=== PATIENT | male | born 1955 | race Caucasian/White ===

== ENCOUNTER → 2021-01-31 | Outpatient (CLI) | payer OTHER, BC ==
[~2021-01-31] MED LIST: ACTOS15 MG; BYETTA PEN 11 PENINJ; BYETTA PEN 51 PENIN1; CRESTOR40 MG; CYMBALTA; JANUMET 50-5001 EACH; LIPITOR; [UNRECOGNIZED DRUG - OTHER]
== END ==
LOC: SJCVCIMAG 08:33
PROVIDERS: ATTEND Internal Medicine Cardiovascular Disease
DX: I10 Essential (primary) hypertension (principal); E78.5 Hyperlipidemia, unspecified